=== PATIENT | female | born 1955 | race Caucasian/White ===

== ENCOUNTER 2023-07-27 08:21 | Inpatient (IN) | payer MEDICARE ==
[2023-07-27 08:59] LABS: BASOPHILS PERCENT AUTO 0.2 % (0.2-1.2); EOSINOPHILS ABSOLUTE AUTO 0.2 x10^3/uL (0.0-0.5); EOSINOPHILS PERCENT AUTO 1.7 % (0.0-4.0); HEMATOCRIT 44.2 % (33.0-47.0); HEMOGLOBIN 14.9 g/dL (12.0-16.0); IMMATURE GRAN ABSOLUTE AUTO 0.11 x10^3/uL (0.00-0.07); LYMPHOCYTES ABSOLUTE AUTO 1.5 x10^3/uL (1.0-4.8); LYMPHOCYTES PERCENT AUTO 16.5 % (25.0-50.0); MEAN CORPUSCULAR HEMOGLOBIN 30.4 pg (26.0-32.0); MEAN CORPUSCULAR HGB CONC 33.7 g/dL (32.0-36.0); MEAN CORPUSCULAR VOLUME 90.2 fL (78.0-93.0); MONOCYTES ABSOLUTE AUTO 0.4 x10^3/uL (0.0-0.8); MONOCYTES PERCENT AUTO 4.5 % (2.0-11.0); NEUTROPHILS ABSOLUTE AUTO 6.9 x10^3/uL (1.8-7.7); NEUTROPHILS PERCENT AUTO 75.9 % (50.0-80.0); PLATELET COUNT,PLT 257 x10^3/uL (130-400); WHITE BLOOD CELL COUNT,WBC 9.1 x10^3/uL (4.0-10.0)
[2023-07-27] MEDS: Albuterol/Ipratropium 3.0-0.5 MG/3 ML Neb Soln NEB ONE (09:00)
[2023-07-27] MEDS: Sodium Chloride 0.9% 10 ML Syringe FLUSH PRN (09:01)
[2023-07-27] MEDS: methylPREDNISolone Sodium Succinate 125 MG/2 ML SDV IV ONE (09:01)
[2023-07-27 09:05] LABS: HCO3 VENOUS,POC 31 mmol/L (22-29); O2 SATURATION VENOUS,POC 62 %; PCO2 VENOUS,POC 49 mmHg (41-51); PH VENOUS,POC 7.41 pH (7.32-7.43); PO2 VENOUS,POC 33 mmHg
[2023-07-27 09:21] LABS: LACTIC ACID 0.9 mmol/L (0.4-2.0)
[2023-07-27 09:28] LABS: A/G RATIO 1.18; BILIRUBIN TOTAL 0.5 mg/dL (0.2-1.0); CALCIUM 9.4 mg/dL (8.5-10.1); CREATININE 0.7 mg/dL (0.55-1.02); EST CRCL DRUG DOSING (CG) 64.51 mL/min; MAGNESIUM 2.3 mg/dL (1.8-2.4); POTASSIUM,K 3.8 mmol/L (3.5-5.1); PROTEIN TOTAL,TP 7.4 g/dL (6.4-8.2); TSH ULTRASENSITIVE 1.712 uIU/mL (0.358-3.74)
[2023-07-27 09:29] LABS: ANION GAP 15.8 mmol/L (5-15)
[2023-07-27 09:37] LABS: D-DIMER QUANTITATIVE 0.51 mg/LFEU (<=0.58); PROTHROMBIN TIME 9.9 SEC (8.9-11.5); PTT,PARTIAL THROMBOPLSTIN TIME 24.5 SEC (21.9-33.8)
[2023-07-27] MEDS: Albuterol 0.083% 2.5 MG/3 ML Neb Soln NEB ONE (09:44)
[2023-07-27 09:51] LABS: CORONAVIRUS COVID-19 NAA NEGATIVE (NEGATIVE); INFLUENZA A NAA NEGATIVE (NEGATIVE); INFLUENZA B NAA NEGATIVE (NEGATIVE); RESPIRATORY SYNCYTIAL VIR NAA NEGATIVE (NEGATIVE)
[2023-07-27] MEDS: Levofloxacin/Dextrose 5%-Water 750 MG in Premix Bag 1 BAG IV ONE (10:08)
[2023-07-27] MEDS: Albuterol/Ipratropium 3.0-0.5 MG/3 ML Neb Soln NEB SCH (12:51)
[2023-07-27] MEDS: methylPREDNISolone Sodium Succinate 125 MG/2 ML SDV IVPUSH SCH (16:53)
[2023-07-27] MEDS: Enoxaparin 40 MG/0.4 ML Syringe SUBCUT SCH (20:55)
[2023-07-27] MEDS: atorvaSTATin 40 MG Tab PO SCH (21:15)
[2023-07-28] MEDS: Levothyroxine 125 MCG Tab PO SCH (06:00)
[2023-07-28 07:55] LABS: HEMATOCRIT 44.1 % (33.0-47.0); HEMOGLOBIN 14.6 g/dL (12.0-16.0); MEAN CORPUSCULAR HEMOGLOBIN 29.9 pg (26.0-32.0); MEAN CORPUSCULAR HGB CONC 33.1 g/dL (32.0-36.0); MEAN CORPUSCULAR VOLUME 90.4 fL (78.0-93.0); RED BLOOD CELL COUNT 4.88 x10^6/uL (4.00-5.50)
[2023-07-28] MEDS: Aspirin 81 MG Tab.Chew PO SCH (08:03)
[2023-07-28] MEDS: amLODIPine 10 MG Tab PO SCH (08:04)
[2023-07-28] MEDS: Losartan 50 MG Tab PO SCH (08:04)
[2023-07-28] MEDS: Hydrochlorothiazide 25 MG Tab PO SCH (08:05)
[2023-07-28 08:10] LABS: CREATININE 0.8 mg/dL (0.55-1.02); EST CRCL DRUG DOSING (CG) 56.45 mL/min; POTASSIUM,K 3.3 mmol/L (3.5-5.1)
[2023-07-28 08:13] LABS: ANION GAP 14.3 mmol/L (5-15)
[2023-07-28] MEDS: Potassium Chloride 10 MEQ Tab.ER PO ONE (09:19)
[2023-07-28] MEDS: LORazepam 0.5 MG Tab PO PRN (09:20)
[2023-07-28] MEDS: Levofloxacin/Dextrose 5%-Water 750 MG in Premix Bag 1 BAG IV SCH (09:21)
[2023-07-29] MEDS: Codeine/guaiFENesin 10-100 MG/5 ML Syrup 5 ML Cup PO PRN (00:20)
[2023-07-29 08:19] LABS: HEMATOCRIT 42.9 % (33.0-47.0); MEAN CORPUSCULAR HEMOGLOBIN 30.3 pg (26.0-32.0); MEAN CORPUSCULAR HGB CONC 32.6 g/dL (32.0-36.0); MEAN CORPUSCULAR VOLUME 92.9 fL (78.0-93.0); RED BLOOD CELL COUNT 4.62 x10^6/uL (4.00-5.50)
[2023-07-29 08:24] LABS: WHITE BLOOD CELL COUNT,WBC 21.1 x10^3/uL (4.0-10.0)
[2023-07-29 08:34] LABS: CALCIUM 10.1 mg/dL (8.5-10.1); CREATININE 0.8 mg/dL (0.55-1.02); EST CRCL DRUG DOSING (CG) 56.45 mL/min; MAGNESIUM 2.3 mg/dL (1.8-2.4); POTASSIUM,K 3.8 mmol/L (3.5-5.1)
[2023-07-29 08:36] LABS: ANION GAP 15.8 mmol/L (5-15)
[2023-07-29] MEDS: methylPREDNISolone Sodium Succinate 125 MG/2 ML SDV IVPUSH SCH (10:14)
[2023-07-30 06:56] LABS: HEMOGLOBIN 13.6 g/dL (12.0-16.0); MEAN CORPUSCULAR HEMOGLOBIN 30.2 pg (26.0-32.0); MEAN CORPUSCULAR HGB CONC 32.4 g/dL (32.0-36.0); MEAN CORPUSCULAR VOLUME 93.3 fL (78.0-93.0); RED BLOOD CELL COUNT 4.5 x10^6/uL (4.00-5.50)
[2023-07-30 07:10] LABS: CALCIUM 9.6 mg/dL (8.5-10.1); CREATININE 0.7 mg/dL (0.55-1.02); EST CRCL DRUG DOSING (CG) 64.51 mL/min
[2023-07-30] MEDS: predniSONE 20 MG Tab PO SCH (09:44)
[2023-07-30] MEDS: Polyethylene Glycol 3350 Powder 17 GM Packet PO PRN (14:38)
[2023-07-31 06:38] LABS: HEMATOCRIT 47.1 % (33.0-47.0); HEMOGLOBIN 15.2 g/dL (12.0-16.0); MEAN CORPUSCULAR HGB CONC 32.3 g/dL (32.0-36.0); MEAN CORPUSCULAR VOLUME 93.1 fL (78.0-93.0); RED BLOOD CELL COUNT 5.06 x10^6/uL (4.00-5.50); WHITE BLOOD CELL COUNT,WBC 15.3 x10^3/uL (4.0-10.0)
[2023-07-31 06:49] LABS: CALCIUM 9.5 mg/dL (8.5-10.1); CREATININE 0.7 mg/dL (0.55-1.02); EST CRCL DRUG DOSING (CG) 64.51 mL/min
[2023-07-31] MEDS: Tiotropium BR/Olodaterol HCL 4 GM Inhalation Spray 2.5mcg/1 dose; 10 doses INH SCH (09:30)
[2023-07-31] MEDS: buPROPion 150 MG Tab.ER PO SCH (11:03)
[2023-07-31] MEDS: methylPREDNISolone Sodium Succinate 40 MG/1 ML SDV IVPUSH ONE (18:24)
[2023-08-01 07:08] LABS: CALCIUM 9.5 mg/dL (8.5-10.1); CREATININE 0.8 mg/dL (0.55-1.02); EST CRCL DRUG DOSING (CG) 56.45 mL/min; POTASSIUM,K 3.9 mmol/L (3.5-5.1)
[2023-08-01 07:14] LABS: ANION GAP 15.9 mmol/L (5-15)
[2023-08-01] MEDS ORDERED: Albuterol/Ipratropium 3.0-0.5 MG/3 ML Neb Soln NEB PRN (16:55)
[2023-08-01] MEDS: Azithromycin 250 MG Tab PO SCH (18:04)
[2023-08-01] MEDS: Arformoterol 15 MCG/2 ML Neb Soln NEB SCH (18:04)
[2023-08-01] MEDS: guaiFENesin 600 MG Tab.ER PO SCH (18:05)
[2023-08-01] MEDS ORDERED: Arformoterol 15 MCG/2 ML Neb Soln NEB SCH (21:00)
[2023-08-02] MEDS: Albuterol 0.083% 2.5 MG/3 ML Neb Soln NEB PRN (10:45)
[2023-08-03 07:05] LABS: HEMATOCRIT 43.5 % (33.0-47.0); HEMOGLOBIN 14.3 g/dL (12.0-16.0); MEAN CORPUSCULAR HEMOGLOBIN 30.4 pg (26.0-32.0); MEAN CORPUSCULAR HGB CONC 32.9 g/dL (32.0-36.0); MEAN CORPUSCULAR VOLUME 92.6 fL (78.0-93.0); RED BLOOD CELL COUNT 4.7 x10^6/uL (4.00-5.50); WHITE BLOOD CELL COUNT,WBC 12.8 x10^3/uL (4.0-10.0)
[2023-08-03 07:22] LABS: CALCIUM 9.4 mg/dL (8.5-10.1); CREATININE 0.7 mg/dL (0.55-1.02); EST CRCL DRUG DOSING (CG) 64.51 mL/min; POTASSIUM,K 3.8 mmol/L (3.5-5.1)
[2023-08-03 07:24] LABS: ANION GAP 11.8 mmol/L (5-15)
== END 2023-08-03 12:20 | disposition home or self-care (01) | DRG 193 ==
LOC: VM.ED 08:21 → VM.MS 10:11
PROVIDERS: ADMIT Nurse Practitioner Family; ATTEND Internal Medicine
DX: J18.9 Pneumonia, unspecified organism (principal); J96.01 Acute respiratory failure with hypoxia; J44.1 Chronic obstructive pulmonary disease with (acute) exacerbation; Z68.41 Body mass index [BMI] 40.0-44.9, adult; J44.0 Chronic obstructive pulmonary disease with (acute) lower respiratory infection; G47.33 Obstructive sleep apnea (adult) (pediatric); I10 Essential (primary) hypertension; E66.01 Morbid (severe) obesity due to excess calories; R73.9 Hyperglycemia, unspecified; Z96.659 Presence of unspecified artificial knee joint; F17.210 Nicotine dependence, cigarettes, uncomplicated; E78.2 Mixed hyperlipidemia; E89.0 Postprocedural hypothyroidism; F17.219 Nicotine dependence, cigarettes, with unspecified nicotine-induced disorders; N39.46 Mixed incontinence; E87.6 Hypokalemia; D72.829 Elevated white blood cell count, unspecified; F41.8 Other specified anxiety disorders; Z85.53 Personal history of malignant neoplasm of renal pelvis; Z88.0 Allergy status to penicillin; Z88.8 Allergy status to other drugs, medicaments and biological substances; Z79.82 Long term (current) use of aspirin; Z79.899 Other long term (current) drug therapy; Z90.89 Acquired absence of other organs; Z98.890 Other specified postprocedural states; Z90.710 Acquired absence of both cervix and uterus; Z90.5 Acquired absence of kidney
CPT/HCPCS: 0241U; 36415; 71045; 71250; 80048; 80053; 82803; 82947; 83605; 83735; 83880; 84145; 84443; 84484; 85025; 85027; 85379; 85610; 85730; 87040; 87205; 93005; 93010; 94640; 94667; 94668; 94760; 96374; 99284; 99285-25; A9270-GY; J1650; J1956; J2920; J2930; J3490; J7512; J7613-GY; J7620-GY

== ENCOUNTER 2024-11-27 09:31 | Day surgery (SDC) | payer MEDICARE ==
[~2024-11-27 09:31] MED LIST: Lactated Ringers 1,000 ML IV SCH
[2024-11-27] MEDS: Lactated Ringers 1,000 ML IV SCH (09:57)
[2024-11-27] MEDS ORDERED: fentaNYL 100 MCG/2 ML SDV ONE ×2 (10:06→11:55)
[2024-11-27] MEDS ORDERED: Midazolam 1 MG/ML 2 ML SDV ONE ×2 (10:06→11:55)
[2024-11-27] MEDS ORDERED: Propofol 200 MG/20 ML SDV ONE ×4 (10:06→11:55)
== END 2024-11-27 12:50 | disposition home or self-care (01) ==
LOC: VM.SDS 09:31
PROVIDERS: ATTEND Family Medicine
DX: Z12.11 Encounter for screening for malignant neoplasm of colon (principal); D12.2 Benign neoplasm of ascending colon; D12.3 Benign neoplasm of transverse colon; D12.5 Benign neoplasm of sigmoid colon; K63.5 Polyp of colon; K57.30 Diverticulosis of large intestine without perforation or abscess without bleeding; K64.9 Unspecified hemorrhoids; I10 Essential (primary) hypertension; E78.5 Hyperlipidemia, unspecified; E66.9 Obesity, unspecified; Z68.42 Body mass index [BMI] 45.0-49.9, adult; Z88.0 Allergy status to penicillin; Z88.8 Allergy status to other drugs, medicaments and biological substances; Z79.82 Long term (current) use of aspirin; Z79.890 Hormone replacement therapy; Z87.891 Personal history of nicotine dependence; Z79.899 Other long term (current) drug therapy
CPT/HCPCS: 00811; 88305; J2250; J2704; J3010; J7120